=== PATIENT | male | born 1950 | race African-American/Black ===

== ENCOUNTER 2024-01-09 12:04 | Inpatient (IN) | payer OTHER ==
[~2024-01-09] VITALS: Ht 175.3 cm; Wt 92.1 kg
[~2024-01-09 12:04] MED LIST: ALBU18HF2 IH; BACL-141 PO; CARISOPRODOL; CETI10CA11 PO; CLON0.122 PO; DIAZEPAM; DICL75TA5 PO; FLUT1DIS3 INH; GABA-532 PO; HCTZ; IBUPROFEN; NIFE20CA8 PO; SERT20OR6 PO; SIMVASTATIN; TRIAMCINOLONE; ZOLP1.754 SL
[2024-01-09 13:00] LABS: CARBON DIOXIDE 23 mEq/L (21-32); CHLORIDE 110 mEq/L (98-107); POTASSIUM 4.5 mEq/L (3.5-5.1); SODIUM 138 mEq/L (136-145)
[2024-01-09 13:01] LABS: CALCIUM 9.1 mg/dL (8.7-10.4)
[2024-01-09 13:03] LABS: BASOPHILS % 0.9 % (0.0-2.0); EOSINOPHILS % 4.6 % (0.0-5.0); HEMATOCRIT. 43.8 % (42.0-52.0); HEMOGLOBIN. 13.8 g/dL (14.0-18.0); LYMPHOCYTES % 37.6 % (20.0-50.0); MEAN CORPUSCULAR HGB CONC 31.5 g/dL (31.0-37.0); MEAN CORPUSCULAR VOLUME 82.4 fL (80.0-94.0); MEAN PLATELET VOLUME 9.9 fl (7.4-10.4); MONOCYTES % 11.2 % (2.0-8.0); NEUTROPHILS % 45.7 % (40.0-76.0); PLATELET 198 x1000/uL (130-400); RED BLOOD CELL COUNT 5.31 mill/uL (4.7-6.1); RED CELL DISTRIBUTION WIDTH 14.7 % (11.6-14.6)
[2024-01-09 13:06] LABS: CREATININE 0.9 mg/dL (0.6-1.3); GLUCOSE 111 mg/dL (70-105); UREA NITROGEN BLOOD 11 mg/dL (9-23)
[2024-01-09 13:07] LABS: ALANINE AMINOTRANSFERASE 23 IU/L (10-49); ASPARTATE AMINOTRANSFERASE 29 IU/L (<34); TROPONIN I HIGH SENSITIVITY 33 ng/L (3.0-53)
[2024-01-09 13:08] LABS: ALBUMIN 4.4 g/dL (3.2-4.8); BILIRUBIN TOTAL 0.3 mg/dL (0.1-1.0); PROTEIN TOTAL 7.1 g/dL (6.0-8.3)
[2024-01-09 13:11] LABS: BILIRUBIN DIRECT < 0.1 mg/dL (<=3.0)
[2024-01-09] MEDS: NITROGLYCERIN OINT 1GM/INCH UDPKT TD ONE (14:05)
[2024-01-09] MEDS: ASPIRIN 325MG TABLET PO ONE (14:05)
[2024-01-09] MEDS ORDERED: GUAIFENESIN 200MG/10ML SUGAR FREE UDC PO PRN (19:15)
[2024-01-09] MEDS ORDERED: NITROGLYCERIN 0.4MG TABLET SL SL PRN (19:15)
[2024-01-09] MEDS ORDERED: IPRATROPIUM/ALBUTEROL 0.5-3(2.5)MG/3ML NEB NEB PRN (19:15)
[2024-01-09] MEDS ORDERED: ACETAMINOPHEN 325MG TABLET PO PRN ×2 (19:15)
[2024-01-09] MEDS ORDERED: MAGNESIUM/ALUMINUM HYDROXIDE/SIMETHICONE 30ML UDC PO PRN (19:15)
[2024-01-09] MEDS ORDERED: ONDANSETRON HCL 4MG/2ML INJ IV PRN (19:15)
[2024-01-09] MEDS: AMLODIPINE 10MG TABLET PO SCH (19:32)
[2024-01-09] MEDS: ENOXAPARIN 40MG/0.4ML SYR SUBCUT SCH (20:16)
[2024-01-09] MEDS: FAMOTIDINE 20MG TABLET PO SCH (21:36)
[2024-01-10] VITALS: BP 166/89; PULSE 72; PULSE 80; RESP 18; RESP 19; TEMP 36.61404; TEMP 36.6404; O2SAT 98
[2024-01-10 04:00] VITALS: BP 138/76; PULSE 76; RESP 18; TEMP 36.72516; O2SAT 97
[2024-01-10] MEDS: CLONIDINE 0.1MG TABLET PO PRN (04:29)
[2024-01-10 08:00] VITALS: BP 117/63; PULSE 69; RESP 18; TEMP 36.44736; O2SAT 95
[2024-01-10 08:07] LABS: PROTHROMBIN TIME 10.9 sec (9.6-11.0)
[2024-01-10 08:17] LABS: CHLORIDE 106 mEq/L (98-107); POTASSIUM 3.4 mEq/L (3.5-5.1); SODIUM 136 mEq/L (136-145)
[2024-01-10 08:19] LABS: CALCIUM 8.8 mg/dL (8.7-10.4); CARBON DIOXIDE 24 mEq/L (21-32)
[2024-01-10 08:24] LABS: GLUCOSE 142 mg/dL (70-105)
[2024-01-10 08:25] LABS: CREATINE KINASE MB FRACTION 1.9 ng/mL (0.5-3.6); UREA NITROGEN BLOOD 8 mg/dL (9-23)
[2024-01-10 08:26] LABS: ALANINE AMINOTRANSFERASE 18 IU/L (10-49); ALBUMIN 3.8 g/dL (3.2-4.8); ASPARTATE AMINOTRANSFERASE 15 IU/L (<34)
[2024-01-10 08:27] LABS: BILIRUBIN TOTAL 0.5 mg/dL (0.1-1.0); IRON 90 ug/dL (65-175); PROTEIN TOTAL 6.6 g/dL (6.0-8.3); TRIGLYCERIDE 123 mg/dL (0-150)
[2024-01-10 08:28] LABS: CHOLESTEROL 153 mg/dL (<200); HDL CHOLESTEROL 30 mg/dL (>55); LDL CHOLESTEROL 109 mg/dL (5-100)
[2024-01-10 08:29] LABS: THYROID STIMULATING HORMONE 1.76 uIU/mL (0.55-4.78)
[2024-01-10 08:30] LABS: TOTAL IRON BINDING CAPACITY 240 ug/dl (250-425)
[2024-01-10 08:32] LABS: VITAMIN B12 SERUM 1079 pg/mL (211-911)
[2024-01-10] MEDS: ASPIRIN 81MG EC TABLET PO SCH (08:39)
[2024-01-10 08:51] LABS: BASOPHILS % 0.4 % (0.0-2.0); EOSINOPHILS % 3.9 % (0.0-5.0); HEMATOCRIT. 41.7 % (42.0-52.0); HEMOGLOBIN. 13.6 g/dL (14.0-18.0); LYMPHOCYTES % 43.2 % (20.0-50.0); MEAN CORPUSCULAR HEMOGLOBIN 26.9 pg (28.0-32.0); MEAN CORPUSCULAR HGB CONC 32.6 g/dL (31.0-37.0); MEAN CORPUSCULAR VOLUME 82.6 fL (80.0-94.0); MEAN PLATELET VOLUME 10.5 fl (7.4-10.4); MONOCYTES % 6.3 % (2.0-8.0); NEUTROPHILS % 46.2 % (40.0-76.0); PLATELET 181 x1000/uL (130-400); RED BLOOD CELL COUNT 5.05 mill/uL (4.7-6.1); RED CELL DISTRIBUTION WIDTH 14.9 % (11.6-14.6); WHITE BLOOD COUNT 4.9 x1000/uL (4.5-11.0)
[2024-01-10 09:01] LABS: FOLIC ACID (FOLATE) SERUM 15.02 ng/mL (>5.38)
[2024-01-10 12:00] VITALS: BP 139/76; PULSE 69; RESP 17; TEMP 37.11408; O2SAT 96
[2024-01-10] MEDS: METOPROLOL TARTRATE 25MG TABLET PO SCH (12:11)
[2024-01-10] MEDS: POTASSIUM CHLORIDE 20MEQ TABLET SR PO NR (12:12)
[2024-01-10] MEDS: ENOXAPARIN 100MG/ML SYR SUBCUT SCH (12:12)
[2024-01-10 12:44] LABS: CREATINE KINASE MB FRACTION 1.9 ng/mL (0.5-3.6)
[2024-01-10 12:59] LABS: *AMPHETAMINES SCREEN URINE NEGATIVE (NEGATIVE); *BARBITURATES SCREEN URINE NEGATIVE (NEGATIVE); *BENZODIAZEPINES SCREEN URINE NEGATIVE (NEGATIVE); *COCAINE SCREEN URINE NEGATIVE (NEGATIVE); CANNABINOID URINE SCREEN NEGATIVE (NEGATIVE); ECSTASY MDMA SCREEN URINE NEGATIVE (NEGATIVE); METHADONE URINE SCREEN NEGATIVE (NEGATIVE); OPIATES URINE SCREEN NEGATIVE (NEGATIVE); PHENCYCLIDINE URINE SCREEN NEGATIVE (NEGATIVE)
[2024-01-10] MEDS: NITROGLYCERIN OINT 1GM/INCH UDPKT TD SCH (13:43)
[2024-01-10] MEDS ORDERED: NITROGLYCERIN OINT 1GM/INCH UDPKT TD SCH (14:00)
[2024-01-10 16:00] VITALS: BP 133/78; PULSE 75; RESP 19; TEMP 36.3918; O2SAT 98
[2024-01-10 20:00] VITALS: BP 120/70; PULSE 68; RESP 19; TEMP 36.78072; O2SAT 98
[2024-01-10] MEDS: KETOROLAC 15MG/ML VIAL IV PRN (22:53)
[2024-01-10] MEDS: ZOLPIDEM TARTRATE 5MG TABLET PO PRN (23:06)
[2024-01-11] VITALS: BP 132/82; PULSE 58; RESP 19; TEMP 36.50292; O2SAT 98
[2024-01-11 04:00] VITALS: BP 134/79; PULSE 61; RESP 19; TEMP 36.61404; O2SAT 98
[2024-01-11 08:00] VITALS: BP 128/76; PULSE 60; RESP 16; TEMP 37.00296; O2SAT 98
[2024-01-11] MEDS: DOCUSATE SODIUM 100MG CAPSULE PO PRN (08:37)
[2024-01-11] MEDS ORDERED: DIPHENHYDRAMINE 50MG/ML VIAL ONE (10:40)
[2024-01-11] MEDS ORDERED: VERAPAMIL HCL 2.5 MG/1 ML 2ML VIAL IV ONE (10:40)
[2024-01-11] MEDS ORDERED: LIDOCAINE HCL 1% 10 MG/ML 10ML VIAL ONE (10:40)
[2024-01-11] MEDS ORDERED: IODIXANOL 320MG/ML 100 ML BOTTLE IV ONE (10:40)
[2024-01-11] MEDS ORDERED: FENTANYL CITRATE/PF 50MCG/ML 2ML VIAL ONE (11:02)
[2024-01-11] MEDS ORDERED: MIDAZOLAM HCL 2 MG/2 ML VIAL ONE (11:03)
[2024-01-11] MEDS ORDERED: HEPARIN 1000 UNITS/ML 10ML ONE (11:04)
[2024-01-11] MEDS ORDERED: CLOPIDOGREL 75MG TABLET ONE (11:47)
[2024-01-11] MEDS ORDERED: ASPIRIN 325MG TABLET ONE (11:47)
[2024-01-11] MEDS ORDERED: ACETAMINOPHEN 325MG TABLET PO PRN (12:00)
[2024-01-11] MEDS ORDERED: ATROPINE SULFATE 1MG/10ML SYR IV PRN (12:00)
[2024-01-11] MEDS: SODIUM CHLORIDE 0.45% 500 ML IV ONE (12:28)
[2024-01-11 20:00] VITALS: BP 139/77; PULSE 60; RESP 17; TEMP 36.89184; O2SAT 97
[2024-01-12] VITALS: BP 146/81; PULSE 62; RESP 24; TEMP 36.55848; O2SAT 98
[2024-01-12 04:00] VITALS: BP 154/91; PULSE 60; RESP 20; TEMP 36.22512; O2SAT 97
[2024-01-12 06:46] LABS: CARBON DIOXIDE 26 mEq/L (21-32); CHLORIDE 107 mEq/L (98-107); POTASSIUM 3.9 mEq/L (3.5-5.1); SODIUM 138 mEq/L (136-145)
[2024-01-12 06:47] LABS: CALCIUM 9.2 mg/dL (8.7-10.4)
[2024-01-12 06:51] LABS: CREATININE 1.1 mg/dL (0.6-1.3)
[2024-01-12 06:52] LABS: GLUCOSE 88 mg/dL (70-105); UREA NITROGEN BLOOD 14 mg/dL (9-23)
[2024-01-12 06:53] LABS: BASOPHILS % 0.4 % (0.0-2.0); EOSINOPHILS % 3.9 % (0.0-5.0); HEMATOCRIT. 40.6 % (42.0-52.0); LYMPHOCYTES % 30.2 % (20.0-50.0); MEAN CORPUSCULAR HEMOGLOBIN 26.5 pg (28.0-32.0); MEAN CORPUSCULAR HGB CONC 32.1 g/dL (31.0-37.0); MEAN CORPUSCULAR VOLUME 82.7 fL (80.0-94.0); MEAN PLATELET VOLUME 9.9 fl (7.4-10.4); MONOCYTES % 12.6 % (2.0-8.0); NEUTROPHILS % 52.9 % (40.0-76.0); PLATELET 198 x1000/uL (130-400); RED CELL DISTRIBUTION WIDTH 14.7 % (11.6-14.6); WHITE BLOOD COUNT 6.3 x1000/uL (4.5-11.0)
[2024-01-12 08:00] VITALS: BP 144/127; PULSE 80; RESP 16; TEMP 36.72516; O2SAT 96
[2024-01-12] MEDS: METOPROLOL SUCCINATE 50MG ER TABLET PO SCH (09:04)
[2024-01-12] MEDS: CLOPIDOGREL 75MG TABLET PO SCH (09:04)
[2024-01-12] MEDS ORDERED: ATOR20TA MT (11:21)
[2024-01-12] MEDS ORDERED: FAMO20TA8 PO (11:21)
[2024-01-12] MEDS ORDERED: ISOS120T13 MT (11:21)
[2024-01-12] MEDS ORDERED: ASPI-1406 PO (11:21)
[2024-01-12] MEDS ORDERED: CLOP-31 PO (11:21)
[2024-01-12] MEDS ORDERED: METO-385 PO (11:21)
[2024-01-12] MEDS ORDERED: AMLO10TA80 PO (11:21)
[2024-01-12 12:00] VITALS: BP 144/105; PULSE 73; RESP 19; TEMP 36.78072; O2SAT 97
[2024-01-12 13:57] VITALS: BP 144/127; PULSE 80; TEMP 98.1; O2SAT 96
[2024-01-12] MEDS ORDERED: ATORVASTATIN CALCIUM 20MG TABLET PO SCH (21:00)
== END 2024-01-12 14:59 | disposition home or self-care (01) | DRG 174 ==
LOC: ER 12:20 → 5WST 15:36 → EDBEDREQ 15:42 → EDBEDREQTM 15:42 → 7EST 23:46 → 3WST 01-11 16:24
PROVIDERS: ADMIT Internal Medicine; ATTEND Internal Medicine
PROC: 027034Z Dilation of Coronary Artery, One Artery with Drug-eluting Intraluminal Device, Percutaneous Approach (ICD-10-PCS; principal; 2024-01-11)
PROC: 4A023N7 Measurement of Cardiac Sampling and Pressure, Left Heart, Percutaneous Approach (ICD-10-PCS; 2024-01-11)
PROC: B211YZZ Fluoroscopy of Multiple Coronary Arteries using Other Contrast (ICD-10-PCS; 2024-01-11)
DX: I21.4 Non-ST elevation (NSTEMI) myocardial infarction (principal); I50.21 Acute systolic (congestive) heart failure; I25.10 Atherosclerotic heart disease of native coronary artery without angina pectoris; I11.0 Hypertensive heart disease with heart failure; F17.210 Nicotine dependence, cigarettes, uncomplicated; Z20.822 Contact with and (suspected) exposure to COVID-19; J45.909 Unspecified asthma, uncomplicated; Z79.899 Other long term (current) drug therapy; D63.8 Anemia in other chronic diseases classified elsewhere; E78.00 Pure hypercholesterolemia, unspecified
CPT/HCPCS: 36415; 71045; 80048; 80053; 80061; 80076; 80305; 82550; 82553; 82607; 82746; 83036; 83540; 83550; 83735; 83880; 84100; 84443; 84484; 85025; 85347; 87426; 92928; 93005; 93306; 93458; 93970; 99285; C1725; C1769; C1874; C1887; C1893; J1200; J1644; J1650; J1885; J2250; J3010; J3490; Q9967